=== PATIENT | female | born 1980 | race Caucasian/White ===

== ENCOUNTER 2020-06-23 09:13 | Inpatient (IN) | payer OTHER ==
[~2020-06-23 09:13] MED LIST: cefOXitin 2 GM Vial ONE
[2020-06-23] MEDS ORDERED: Neostigmine Methylsulfate 1 MG/ML 5 ML Syringe ONE (09:49)
[2020-06-23] MEDS ORDERED: Glycopyrrolate 0.2 MG/ML 5 ML MDV ONE (09:49)
[2020-06-23] MEDS ORDERED: Dexamethasone 4 MG/ML SDV ONE (09:49)
[2020-06-23] MEDS ORDERED: Propofol 200 MG/20 ML SDV ONE (09:49)
[2020-06-23] MEDS ORDERED: fentaNYL 250 MCG/5 ML SDV ONE ×2 (09:49→12:19)
[2020-06-23] MEDS ORDERED: Succinylcholine 200 MG/10 ML MDV ONE (09:49)
[2020-06-23] MEDS ORDERED: Ondansetron 4 MG/2 ML SDV ONE (09:49)
[2020-06-23] MEDS ORDERED: Rocuronium 50 MG/5 ML Vial ONE (09:49)
[2020-06-23] MEDS ORDERED: Scopolamine 1.5 MG Transdermal Patch TOP ONE (10:00)
[2020-06-23] MEDS ORDERED: Dextrose 5%-Lactated Ringers 1,000 ML IV SCH (10:00)
[2020-06-23] MEDS ORDERED: Celecoxib 200 MG Cap PO ONE (10:00)
[2020-06-23] MEDS ORDERED: Acetaminophen 500 MG Tab PO ONE (10:00)
[2020-06-23] MEDS ORDERED: Gabapentin 300 MG Cap PO ONE (10:00)
[2020-06-23] MEDS ORDERED: Magnesium Sulfate 3.5 GM in Sodium Chloride 0.9% 100 ML IV SCH (11:45)
[2020-06-23] MEDS ORDERED: Ketamine 50 MG in Sodium Chloride 0.9% 49.5 ML IV SCH (11:45)
[2020-06-23] MEDS ORDERED: Magnesium Sulfate 5.5 GM in Sodium Chloride 0.9% 250 ML IV ONE (11:45)
[2020-06-23] MEDS ORDERED: Ketamine 500 MG/5 ML MDV IV SCH (11:45)
[2020-06-23] MEDS: cefOXitin 2 GM in Sodium Chloride 0.9% 50 ML IV ONE ×2 (12:17→14:43)
[2020-06-23] MEDS ORDERED: Sugammadex Sodium 200 MG/2 ML VIAL ONE (13:30)
[2020-06-23] MEDS ORDERED: fentaNYL 100 MCG/2 ML SDV IVPUSH ONE (13:42)
[2020-06-23] MEDS ORDERED: hydrOXYzine HCL 100 MG/2 ML SDV IM ONE (13:42)
[2020-06-23] MEDS ORDERED: Calcium Gluconate 10% 1 GM/10 ML SDV IVPUSH PRN ×2 (14:35→15:00)
[2020-06-23] MEDS ORDERED: Cyclobenzaprine 10 MG Tab PO PRN (14:58)
[2020-06-23] MEDS ORDERED: oxyCODONE 5 MG Tab PO PRN (15:00)
[2020-06-23] MEDS ORDERED: HYDROmorphone 1 MG/ML Syringe IV PRN (15:00)
[2020-06-23] MEDS ORDERED: Acetaminophen 500 MG Tab PO PRN (15:00)
[2020-06-23] MEDS ORDERED: Metoclopramide 10 MG/2 ML SDV IVPUSH PRN (15:00)
[2020-06-23] MEDS ORDERED: hydrOXYzine HCL 100 MG/2 ML SDV IM PRN (15:00)
[2020-06-23] MEDS ORDERED: diphenhydrAMINE 50 MG/ML SDV IVPUSH PRN (15:00)
[2020-06-23] MEDS ORDERED: Ondansetron 4 MG/2 ML SDV IVPUSH PRN (15:00)
[2020-06-23] MEDS ORDERED: HYDROmorphone 0.5 MG/0.5 ML Syringe IVPUSH PRN (15:00)
[2020-06-23] MEDS ORDERED: Labetalol 20 MG/4 ML Syringe IVPUSH PRN (15:00)
[2020-06-23] MEDS ORDERED: MVI, Adult with Vitamin K 10 ML, Thiamine 200 MG, Chromium/Copper/Mang/Selen/Zn 1 ML in... IV SCH ×4 (16:00)
[2020-06-23] MEDS ORDERED: Pantoprazole 40 MG Vial IVPUSH SCH (16:00)
[2020-06-23] MEDS: SCOPOLAMINE PATCH CHECK TOP SCH (16:39)
[2020-06-23] MEDS: cefOXitin 2 GM in Sodium Chloride 0.9% 50 ML IV SCH ×2 (18:29→23:47)
[2020-06-23] MEDS: Heparin Sodium 5,000 Units/ML Vial SUBCUT SCH (20:16)
[2020-06-23] MEDS: Acetaminophen 500 MG Tab PO SCH (20:16)
[2020-06-23] MEDS: Dextrose 5%-Lactated Ringers 1,000 ML IV SCH (22:30)
[2020-06-24] MEDS ORDERED: Iopamidol 612 MG/ML 50 ML SDV PO ONE (03:22)
[2020-06-24] MEDS: Acetaminophen 500 MG Tab PO SCH ×3 (03:49→20:34)
[2020-06-24] MEDS: Dextrose 5%-Lactated Ringers 1,000 ML IV SCH ×2 (04:42→14:05)
[2020-06-24] MEDS: cefOXitin 2 GM in Sodium Chloride 0.9% 50 ML IV SCH ×3 (05:59→17:24)
[2020-06-24] MEDS: Celecoxib 200 MG Cap PO SCH ×2 (08:45→20:34)
[2020-06-24] MEDS: Heparin Sodium 5,000 Units/ML Vial SUBCUT SCH ×2 (08:46→20:34)
[2020-06-24] MEDS: SCOPOLAMINE PATCH CHECK TOP SCH (11:25)
[2020-06-24] MEDS ORDERED: MVI, Adult with Vitamin K 10 ML, Thiamine 200 MG, Chromium/Copper/Mang/Selen/Zn 1 ML in... IV SCH ×4 (16:00)
[2020-06-24] MEDS ORDERED: Pantoprazole 40 MG Delayed-Release Granules 1 Packet PO SCH (16:30)
[2020-06-25] MEDS: Dextrose 5%-Lactated Ringers 1,000 ML IV SCH (02:16)
[2020-06-25] MEDS: Acetaminophen 500 MG Tab PO SCH ×2 (04:28→10:59)
[2020-06-25] MEDS: Celecoxib 200 MG Cap PO SCH (08:05)
[2020-06-25] MEDS: Heparin Sodium 5,000 Units/ML Vial SUBCUT SCH (08:05)
[2020-06-25] MEDS: SCOPOLAMINE PATCH CHECK TOP SCH (08:06)
[2020-06-25] MEDS ORDERED: Cyanocobalamin (Vitamin B12) 1,000 MCG/ML SDV IM ONE (09:00)
[2020-06-25] MEDS ORDERED: Magnesium Hydroxide 400 MG/5 ML Susp 30 ML Cup PO PRN (09:25)
--- NOTE | 2020-06-25 13:21 | PN ---
DATE OF SERVICE: 06/24/2020 The patient is postop day from a laparoscopic Carter-en-Y gastric bypass along with diaphragmatic hernia repair. Clinically, she has done well overnight. Upper GI x-ray looks good. We will begin a step-2 diet today, back down the IV rate, maximize activity with pulmonary toilet. Celebrex and Tylenol for pain. Joseph Javier MD /[id number]
--- NOTE | 2020-06-26 08:47 | DISCH ---
FINAL DIAGNOSES: 1. Morbid obesity. 2. Marked hepatomegaly. 3. Paraesophageal diaphragmatic hernia. SECONDARY DIAGNOSIS: History of plantar warts. OPERATIVE PROCEDURE: Done on date of admission 06/23/2020, diagnostic laparoscopy with: 1. Laparoscopic Carter-en-Y gastric bypass with long limb gastroenterostomy. 2. Florentin-Cut needle liver biopsy. 3. Repair of paraesophageal diaphragmatic hernia. SUMMARY: This is a 40-year-old female presenting with longstanding morbid obesity and progressively increasing comorbidities. After preoperative evaluation and discussion, she wished to proceed with a gastric bypass procedure. This was done on the date of admission and the patient has had an uncomplicated postoperative course. She will be discharged home on Celebrex 200 mg p.o. b.i.d. p.r.n. and Tylenol 1 g p.o. q.6 hours p.r.n. She will be instructed to continue the Depo-Provera shot monthly. Otherwise, we will hold the vitamins and other supplements until after the first appointment. She will be on a step-2 diet, i.e. a liquid diet until the first appointment which will be with Loly Phelps at [facility] in [place] on 07/03/2020. /[id number]
--- NOTE | 2020-06-26 09:04 | CR ---
[facility] HISTORY: Postbariatric surgery FINDINGS: Patient swallowed water-soluble contrast. Upright views of the abdomen show no evidence of extravasation or obstruction. There is a surgical drain in the left upper quadrant. IMPRESSION: Status post bariatric surgery No extravasation or obstruction seen
--- NOTE | 2020-07-04 14:06 | OR ---
DATE OF PROCEDURE: 06/23/2020 SURGEON: Joseph Javier MD PREOPERATIVE DIAGNOSIS: Morbid obesity. POSTOPERATIVE DIAGNOSES: 1. Morbid obesity. 2. Marked hepatomegaly. 3. Paraesophageal diaphragmatic hernia. OPERATIVE PROCEDURES: 1. Laparoscopic Carter-en-Y gastric bypass with long limb gastroenterostomy (69461). 2. Florentin-Cut needle liver biopsy (13274). 3. Repair of paraesophageal diaphragmatic hernia (55022). ANESTHESIA: General. FURNITURE AND BEDDING INSPECTOR: Loly Phelps PA-C INDICATIONS FOR PROCEDURE: This is a 40-year-old female, presenting with longstanding morbid obesity and increasingly significant comorbidities. After preoperative evaluation and discussion, she wished to proceed with a gastric bypass procedure. Potential risks including bleeding, infection, leaks from various GI tract closures, problems with bowel obstruction over time, as well as possibility of cardiopulmonary, septic, or hemorrhagic complications leading to were all discussed, and the patient wishes to proceed. DETAILS OF PROCEDURE: The patient was taken to the operating room, and after general endotracheal anesthesia was induced, she was placed in a lithotomy position and the abdomen prepped and draped. 15 cm inferior and 5 cm left of the xiphoid process, a transverse incision was made and the peritoneal cavity entered under direct vision with an Optiview trocar, inflated to 15 mmHg pressure with CO2. Laparoscope was then reinserted. No underlying trocar insertion site injuries were seen. Following this, 5 additional trocars were placed across the upper and mid abdomen, and bilateral transversus abdominis plane blocks were placed. The patient was noted to have marked hepatomegaly with liver being roughly 2 to 3 times normal size and grossly fatty infiltrated. Florentin-Cut needle biopsy was obtained from left lobe of the liver. Minimal bleeding from the biopsy sites was controlled with electrocautery. The omentum was then divided in the midline up to the level of the transverse colon. This allowed identification of the small bowel at the ligament of Treitz. Small bowel was then traced out 150 cm distal to that point, where it was divided transversely with a MIKAELA stapler. Small bowel was then traced out additional 175 cm where a [id number] enteroenterostomy was accomplished with an internal firing of the Endo-MIKAELA 60 mm stapler. Common opening was then closed transversely with the same stapler and the angles anastomosed and mesenteric defect approximated with some 0 Ethibond stitch along with fibrin sealant. Divided end of the Carter limb was then from the mesentery for a few centimeters which allowed an antecolic positioning of the Carter limb up to the level of the gastroesophageal junction without tension. The liver was retracted anteriorly. The patient was noted to have moderate-sized paraesophageal diaphragmatic hernia with prolapse of perigastric fat and gastric fundus, and a tongue of omentum in a plane anterior and slightly to the left of the course of the esophagus. This was reduced and the peritoneum overlying incised and reflected downward. An anterior repair of the diaphragmatic hernia was then accomplished with some 0 Ethibond sutures reinforced with PTFE pledgets. At this point, the gastrointestinal catheter was then inflated to 15 mL and pulled up snugly against EG junction. Gastric wall over the apex balloon was then marked with electrocautery and balloon catheter deflated and withdrawn. The lesser omental tissue adjacent to the gastric cardia was then incised allowing dissection behind the stomach at that level. Pouch formation was initiated with transverse firing of the MIKAELA stapler at the level of the cauterized bautista in the gastric pouch. The pouch was then completed with additional firings of MIKAELA stapler up to and through the angle of His. Upon completion of the pouch, both staple lines were noted to be intact. The anvil of a 25 mm EEA stapler was then attached to Firebaugh sump type tube, the latter was brought down through the mouth, and taken out through the small opening in the gastric pouch, allowing the anvil likewise to be pulled down to within the gastric pouch. Divided end of the Carter limb was then opened and the main body of the EEA stapler was passed several centimeters to the lumen of the small bowel, brought up the anvil, united with it, thus creating the gastrojejunostomy. Upon removal of the stapler, double donuts of mucosa were noted within it, and the small bowel was closed off with a vascular staple line. Gastrojejunostomy was then reinforced with some 3-0 Vicryl seromuscular stitch along with fibrin sealant. A leak test was accomplished with injection of 120 mL of air in the gastric pouch while it was submerged with a cefoxitin-containing saline solution. A single Lorenzo- Hightower drain was taken out through the left lateral trocar site and positioned adjacent to the gastrojejunostomy, and from there up into the splenic fossa. With no further problems noted, trocars were removed and the peritoneal cavity deflated. The incisions were closed with 4-0 Vicryl stitch and the drains were fixed with 4-0 Vicryl stitch as well. The patient was taken to the recovery room in satisfactory condition. Physician senior agricultural assistant, Loly Phelps, played an essential role in assisting in this case, helping to position the patient, retract structures as needed, as well as suturing and cutting sutures when indicated. Her presence improved patient safety and decreased operative time. Joseph Javier MD /[id number]
== END 2020-06-25 11:30 | disposition home or self-care (01) | DRG 621 ==
LOC: JP.SDS 09:13 → JP.MS 09:13 → EDSTATUS 09:30 → JP.MS 14:53
PROVIDERS: ADMIT Surgery; ATTEND Surgery
PROC: 0D164ZA Bypass Stomach to Jejunum, Percutaneous Endoscopic Approach (ICD-10-PCS; principal; 2020-06-23)
PROC: 0FB24ZX Excision of Left Lobe Liver, Percutaneous Endoscopic Approach, Diagnostic (ICD-10-PCS; 2020-06-23)
PROC: 0BQT4ZZ Repair Diaphragm, Percutaneous Endoscopic Approach (ICD-10-PCS; 2020-06-23)
DX: E66.01 Morbid (severe) obesity due to excess calories (principal); R16.0 Hepatomegaly, not elsewhere classified; K44.9 Diaphragmatic hernia without obstruction or gangrene; Z79.899 Other long term (current) drug therapy; Z68.39 Body mass index [BMI] 39.0-39.9, adult
CPT/HCPCS: 36415; 74240; 74240-26; 80053; 81025; 83735; 84100; 85027; 86850; 86900; 86901; 88307; 88313; 93005; 93010; A9270-GY; C9113; J0171; J0330; J0610; J0694; J1100; J1644; J2405; J2704; J2710; J2795; J3010; J3410; J3411; J3420; J3475; J3490; J7050; J7121; Q9967